=== PATIENT | male | born 1950 | race Caucasian/White ===

== ENCOUNTER → 2018-09-13 06:37 | Day surgery (SDC) | payer MEDICARE, BC ==
--- NOTE | 2018-09-05 17:36 | HP ---
PREOPERATIVE HISTORY AND PHYSICAL: DATE OF ADMISSION/SURGERY: 09/13/18 DATE OF OFFICE VISIT: 09/05/18 ATTENDING SURGEON: Dr. Bk Bustos.* (DICTATED BY GLENNA MACEDO) PROCEDURE: Left shoulder arthroscopic rotator cuff repair, decompression, debridement, and possible subpectoral biceps tenodesis. CHIEF COMPLAINT: Left shoulder pain. 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 He has failed conservative measures and therefore agreed to undergo a left shoulder arthroscopic rotator cuff repair, decompression, debridement, and possible biceps tenodesis with Dr. Bustos on 09/13/18. PAST MEDICAL HISTORY: Hypertension, kidney stones, and widened aorta. PAST SURGICAL HISTORY: Pilonidal cyst, vasectomy, cystoscopy, tonsillectomy and adenoidectomy, and wisdom teeth removal. The patient denies prior complications with anesthesia. MEDICATIONS: 1. Viagra 100 mg use as needed. 2. Wellbutrin 300 mg 1 by mouth every day. 3. Lisinopril/hydrochlorothiazide 03/10.5 one every day. 4. Fish oil 500 mg 1 by mouth every day. 5. Multivitamin 1 by mouth every. 6. Metoprolol succinate 25 mg 1 by mouth every day. 7. Ibuprofen 600 mg 1 by mouth twice a day. ALLERGIES: No known drug allergies. FAMILY HISTORY: Positive for stroke in his mother and AFib in his mother and cancer in his mother and father. SOCIAL HISTORY: He is retired. He denies tobacco use. He reports occasional alcohol consumption. He is right-hand dominant. REVIEW OF SYSTEMS: A 14-point review of systems was reviewed with the patient. Positive for current complaint, otherwise negative. Denies history of DVT or PE , history of bleeding disorder, fever, chills, chest pain, shortness of breath. PHYSICAL EXAMINATION GENERAL: A 68-year-old, well-developed, well-nourished male, in no acute distress. VITAL SIGNS: Height 70.5, weight 255, blood pressure 130/74, respiratory rate 18, temperature 97.5, BMI 36.1. HEENT: Normocephalic, atraumatic. PERRLA. Throat clear. NECK: Supple. PULMONARY: Lungs are clear to auscultation bilaterally. No wheezing, rhonchi, or rales. CARDIO: Regular rate and rhythm. S1, S2. No murmurs, gallops, or rubs. No edema. ABDOMEN: Positive bowel sounds. Soft, nontender. NEURO: Alert and oriented x3. Cranial nerves grossly intact. MUSCULOSKELETAL: Left upper extremity: Skin is intact. No warmth or erythema. Tenderness to palpation of the subacromial space and bicipital groove. Forward flexion and abduction to 100, passively able to move past. Positive drop-arm test. +4/5 strength to rotator cuff testing with pain. Positive impingement, Speed, Woodruff-Dixon, [place]. Positive Ady. +2 radial pulse. Sensation intact to light touch distally. DIAGNOSTIC STUDIES: MRI revealed full-thickness tear of the rotator cuff, subscapularis appears intact, and damage to the biceps. IMPRESSION: Left shoulder rotator cuff tear and biceps tendinitis. PLAN: The patient is scheduled to undergo a left shoulder arthroscopic rotator cuff repair, decompression, debridement, and possible biceps tenodesis with Dr. Bustos on 09/13/18. The patient states he has been seen by Dr. Patel, his puddler helper, and has been cleared. Percocet will be used for postop pain management with ibuprofen postoperatively. He will follow up 10 to 14 days postop for followup and suture removal. GLENNA MACEDO [id number]/[facility] #: [id number] MAGED
[~2018-09-13 06:37] MED LIST: Atracurium* 10 MG/ML 10 ML VIAL ONE; Buffered Lidocaine 1% SYRIN* 1 ML/SYRINGE INTRADERM ONE; Bupivacaine 0.25% SDV PF* 10 ML VIAL INJ ONE; Dexamethasone IV* 4 MG/ML 1 ML (4 MG) IV SLOW PU ONE; Dexamethasone IV* 4 MG/ML 1 ML (4 MG) ONE; DiMENhydriNATE IV* 50 MG/ML VIAL IV PUSH PRN; EPHEDrine (Pressors)* 50 MG/ML VIAL ONE; Famotidine IV* 10 MG/ML 2 ML (20 mg) IV ONE; Famotidine IV* 10 MG/ML 2 ML (20 mg) ONE; HYDROmorphone INJ1* 1 MG/ML SYRINGE IV PRN; Lactated Ringers 1000 ML Bag* 1,000 ML IV SCH; Lidocaine 2% PF * 5 ML VIAL ONE; Midazolam* 1 MG/ML 5 ML VIAL (5 MG) ONE; Naloxone* 0.4 MG/ML 1 ML VIAL IV PRN; Ondansetron INJ* 2 MG/ML VIAL IV PRN; Ondansetron INJ* 2 MG/ML VIAL ONE; Propofol* 10 MG/ML 20 ML BTL ONE; ROPIVACAINE 5 MG/ML 30 ML BTL (0.5%) ONE; Scopolamine 1.5 mg* PATCH TRANSDERM PRN; ceFAZolin 2 GM in NS PREMIX(*) 2 GM/100 ML BAG IVPB ONE; fentaNYL* 50 MCG/ML 2 ML VIAL (100 MCG VIAL) IV PRN; fentaNYL* 50 MCG/ML 2 ML VIAL (100 MCG VIAL) ONE; oxyCODONE/Acetamin 5/325 MG* TAB PO PRN
[2018-09-13 13:05] VITALS: BP 102/70
--- NOTE | 2018-09-14 06:16 | OP ---
CC: PCP, Kelly Qureshi MD * DATE OF OPERATION: 09/13/18 - [facility] DATE OF : 52 SURGEON: Bk Bustos MD. DIGITAL MUSIC INSTRUCTOR: GLENNA Dangelo. An clinical assistant professor was needed for the entirety of the case to help with positioning, retraction, and was utilized throughout all portions of the case. ANESTHESIOLOGIST: Dr. Hylton. ANESTHESIA: General with interscalene block. PRE-OP DIAGNOSIS: Left shoulder complete tear of the rotator cuff with bicipital tendonitis. POST-OP DIAGNOSIS: Left shoulder complete tear of the rotator cuff with bicipital tendonitis. OPERATIVE PROCEDURES: Left shoulder arthroscopy with: 1. Extensive glenohumeral debridement. 2. Subacromial decompression with acromioplasty. 3. Rotator cuff repair of the supraspinatus tendon in a double row fashion, augmented with REGENETEN patch. 4. Biceps tenodesis, subpectoral. IMPLANTS: Two HEALICOILs, 2 MULTIFIX, 1 Q-FIX 2.8 mm, 1 medium size REGENETEN patch. COMPLICATIONS: None. ESTIMATED BLOOD LOSS: Minimal. 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 He had significant pain and loss of motion. He underwent MRI that diagnosed him with a full-thickness complete tear of the rotator cuff. He failed conservative management and he elected to proceed with surgical treatment. The risks and benefits were discussed at length including, but not limited to bleeding, infection, damage to nerves; vessels; surrounding structures, wound nonhealing, persistent pain, need for further surgery, scarring, stiffness, incomplete relief of symptoms, risks of anesthesia. He has elected to proceed. He underwent medical risk optimization prior to surgery. DESCRIPTION OF PROCEDURE: The patient was greeted in the preoperative area by the attending surgeon. The correct extremity was marked and consent was confirmed. The patient underwent interscalene nerve block by the anesthesiologist, after which he was brought back to the operating suite and he was placed in the supine position on the operating table. He then underwent general anesthesia and endotracheal intubation, after which he was appropriately positioned in the right lateral decubitus position. An axillary roll was placed and he was secured with pegboard. The left arm was draped unsterile with 10 pounds traction. The left shoulder was then prepped and draped in the usual sterile fashion beginning with chlorhexidine soap, scrub, and alcohol wipe, and a final prep with ChloraPrep. After appropriate surgical pause indicating the side, site, procedure, and administration of antibiotics, a standard posterolateral portal was made sharply with 11 blade. The scope was introduced into the joint. The joint was examined. There were grade 0 to 1 changes of the glenohumeral joint. The anterior, posterior and superior labrum had unstable fraying. The biceps anchor was damaged. There was synovitis on the biceps tendon as well. There was evidence of full-thickness tear of the supraspinatus tendon. The subscap appeared to be intact. The inferior recess was intact with some synovitis. An anterior portal was made in an outside- in fashion. Shaver was used to debride back the anterior, posterior and superior labrum. The biceps was then tenotomized for later tenodesis and the stump was debrided back. Once the debridement was completed, attention was directed to the subacromial space. The scope was positioned in the subacromial space. The lateral portal was made in an outside-in fashion. Shaver was used to debride back the abundant bursa that was present and visualize the cuff tear. There was a full-thickness tear of the cuff. There appeared to be an irregularly shaped tear with some interstitial tearing. Once the abundant bursa was removed and hemostasis was obtained, using the electrocautery device, the undersurface of the acromion was then skeletonized using electrocautery device. A moderate anterolateral spur was identified and this was debrided back using the shaver and 4-0 oval daryl, and all excess bone and debris was removed. Once this was complete, attention was directed to the rotator cuff. The cuff tendon was then debrided back to a stable layer. The greater tuberosity was exposed and prepared using electrocautery device, the rasp as well as the 4-0 oval daryl to gently decorticate. After this was done through two separate stab incisions, two 4.75 HEALICOILs were placed with excellent purchase. The bone quality was quite good. Sutures were then passed through the tendon in a horizontal mattress configuration and then tied down using the arthroscopic knot- tying technique. This helped to reapproximate the cuff. The decision was made to proceed with a double-row fixation and 2 MULTIFIX anchors were used. One set of each of the 4 strands of the suture was then passed to the MULTIFIX to be placed anterolaterally and then posterolaterally. This helped to compress the cuff. The shoulder was taken through a gentle range of motion. There was appropriate compression of the rotator cuff. The decision was made to augment this using REGENETEN patch. A medium-sized REGENETEN patch was then brought to the field and then placed under arthroscopic visualization, secured medially with tendon rachel and laterally with bone rachel. This helped to augment the defect. Once this was done, final images were obtained. The wounds were copiously irrigated with sterile saline. Attention was directed to the biceps. The bed was airplaned to the left side. The anterior aspect of the shoulder was prepped again using ChloraPrep. An anterior incision was made using a 15 blade. Soft tissues were carefully dissected to expose the fascia. Once the fascia was identified, remainder of the dissection was done bluntly. The pec was elevated and the bicipital groove was palpated. The biceps was brought through the wound and had abundant synovitis and tendonitis. The groove was prepared in the usual fashion using electrocautery device, red ball rasp, and an osteotome to allow for bony bleeding bed. The Q-FIX drill guide was then drilled unicortically and the Q- FIX was deployed with excellent purchase. The sutures were then passed through the biceps in a Aneudy-Jr type configuration and then tied down. The excess stump was excised. The wounds were copiously irrigated with sterile saline. The anterior wound was closed in layers with 3- 0 Monocryl for subcutaneous as well as a running layer. The portals were closed using 3-0 nylon. Sterile dressings were applied. The wounds were copiously irrigated with sterile saline. Cryo/Cuff and UltraSling were applied. He was awoken from anesthesia and transferred to PACU in stable condition. POSTOPERATIVE PLAN: He will be nonweightbearing. He will be in a sling for 6 weeks. He will be discharged on pain medication and antibiotics. I will see the patient back in 10 to 14 days. [id number]/[facility] #: [id number] MAGED
== END | disposition home or self-care (01) ==
LOC: OR 06:37
PROVIDERS: ATTEND Orthopaedic Surgery
DX: M75.122 Complete rotator cuff tear or rupture of left shoulder, not specified as traumatic (principal); M75.22 Bicipital tendinitis, left shoulder; I10 Essential (primary) hypertension; Z87.442 Personal history of urinary calculi
CPT/HCPCS: C1713; C1776; J0690; J1100; J2250; J2405; J2704; J2795; J3010; J3490

== ENCOUNTER 2019-05-31 10:58 | Inpatient (IN) | payer BC, MEDICARE ==
--- OUTSIDE RECORDS SUMMARY | 2019-05-31 11:15 | XMS REPORT | Continuity of Care Document ---
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 [phone] Medicine Problems Active Problems Provider Date Electrocardiogram abnormal Patrick Patel M.D., [facility], Onset: 07/12/2018 [facility] Dyspnea Patrick Patel M.D., [facility], Onset: 07/12/2018 [facility] Strain of rotator cuff capsule Bk Bustos MD Onset: 07/20/2018 Essential hypertension [facility], Onset: 09/04/2018 FASNC Strain of muscle of long head of Bk Bustos MD Onset: 09/22/2018 biceps brachii Knee joint effusion Bk Bustos MD Onset: 05/15/2019 Localized, primary osteoarthritis Bk Bustos MD Onset: 05/15/2019 Social History Type Date Description Comments Sex Unknown Tobacco Use Start: Unknown Never Smoked Cigarettes Smoking Status Reviewed: 05/15/19 Never Smoked Cigarettes ETOH Use Currently consumes 5-6 times per week alcohol Tobacco Use Start: Unknown Patient has never smoked Recreational Drug Use Denies Drug Use Exercise Type/Frequency Does not exercise Allergies, Adverse Reactions, Alerts Description No Known Drug Allergies Medications Active Medications SIG Qnty Indications Ordering Provider Date Metoprolol Succinate 1 by mouth every 90tabs Patrick Patel, 08/02/2018 SHANELLE vargas M.D., [facility], AUGUSTINNC 25mg Tablets ER 24HR Viagra use as needed Unknown 100mg Tablets daily Wellbutrin XL 1 by mouth every Unknown 300mg day Tablets ER 24HR Lisinopril-Hydrochloro 1 by mouth every Unknown thiazide day 10-12.5mg Tablets Fish Oil 1 by mouth every Unknown 500mg Capsules day Multivitamin Adult 1 by mouth every Unknown day Tablets Ibuprofen once or twice a Unknown 600mg Tablets day Medications Administered in Office Medication SIG Qnty Indications Ordering Provider Date No Injection Bk Bustos MD 05/15/2019 Injection Triamcinolone (Kenalog) Bk Bustos MD 05/15/2019 Injection Inj, Regadenoson, 0.1 MG Patrick Patel M.D., 09/01/2018 Injection FACC, FASNC Technetium TC 99M Patrick Patel M.D., 09/01/2018 Tetrofosmin, Per Unit Dose Up FACC, FASNC To 40 Millicuries Injection Immunizations Description No Information Available Vital Signs Date Vital Result Comment 05/15/2019 2:03pm Height 70 inches 5'10" Weight 254.25 lb Heart Rate 76 /min BP Systolic 126 mmHg BP Diastolic 76 mmHg Respiratory Rate 14 /min Pain Level 8 BMI (Body Mass Index) 36.5 kg/m2 03/16/2019 9:27am Height 70 inches 5'10" Weight 250.00 lb Heart Rate 80 /min BP Systolic 118 mmHg BP Diastolic 88 mmHg Body Temperature 97.2 F Pain Level 5 BMI (Body Mass Index) 35.9 kg/m2 Results Description No Information Available Procedures Description No Information Available Medical Devices Description No Information Available Encounters Type Date Location Provider Dx Diagnosis Office Visit 03/16/2019 [facility] Bk Bustos MD S46.012D Strain of 9:30a at [place] musc/tend the rotator cuff of left shoulder, subs Office Visit 01/16/2019 [facility] B[facility] S46.012D Strain of 9:30a at [place] musc/tend the rotator cuff of left shoulder, subs S46.112D Strain of musc/fasc/tend long head of biceps, left arm, subs Assessments Date Code Description Provider 05/15/2019 M17.12 Unilateral primary osteoarthritis, left knee Bk Bustos MD 05/15/2019 M25.462 Effusion, left knee Bk Bustos MD 03/16/2019 S46.012D Strain of muscle(s) and tendon(s) of the rotator Bk Bustos MD cuff of lef 01/16/2019 S46.012D Strain of muscle(s) and tendon(s) of the rotator Bk Bustos MD cuff of lef 01/16/2019 S46.112D Strain of muscle, fascia and tendon of long head Bk Bustos MD of biceps, 12/05/2018 S46.012D Strain of muscle(s) and tendon(s) of the rotator Bk Bustos MD cuff of lef 12/05/2018 S46.112D Strain of muscle, fascia and tendon of long head Bk Bustos MD of biceps, Plan of Treatment 05/15/2019 - Bk Bustos, MDM17.12 Unilateral primary osteoarthritis, left kneeFollow up:Follow up: As [id number] Effusion, left knee Functional Status Description No Information Available Mental Status Description No Information Available Referrals Description No Information Available
[2019-05-31] MEDS ORDERED: NS 0.9% 1000 ML** 1,000 ML IV ONE ×2 (11:30→15:52)
--- NOTE | 2019-05-31 11:38 | ED ---
Abdominal Pain/Male - HPI Summary HPI Summary: Pt is a 68 y/o M presenting to the ED with a chief complaint of abd pain initially onset 05/22/19. He states it is intermittent, located in the RUQ, seemingly on the R lower rib area. He states it is not present during the day but seems to come on and worsen after he lies down to go to sleep. Denies nausea , vomiting, fever, or radiation of the pain. Not worsened by eating, not alleviated by anything. Worsened by deep breaths. Notes hx of cough for a couple of months, and this morning he had a coughing fit that produced some sputum with blood in it, and he notes coughing up a hard pea in the waiting room today. - History of Current Complaint Chief Complaint: EDAbdPain Stated Complaint: ABD PAIN Time Seen by Provider: 05/31/19 11:26 Hx Obtained From: Patient Onset/Duration: Gradual Onset, Lasting Hours, Still Present Timing: Intermittent, Lasting Hours Severity Initially: Moderate Severity Currently: Mild Pain Intensity: 1 Pain Scale Used: 0-10 Numeric Location: Discrete At: RUQ Radiates: No Aggravating Factor(s): Deep Breaths Alleviating Factor(s): Nothing Associated Signs And Symptoms: Positive: Cough. Negative: Fever, Nausea, Vomiting - Allergies/Home Medications Allergies/Adverse Reactions: Allergies Allergy/AdvReac Type Severity Reaction Status Date / Time No Known Allergies Allergy Verified 05/31/19 11:05 Home Medications: Home Medications Diclofenac Sodium EC TAB* [Voltaren EC TAB*] 25 mg PO TID PRN 05/31/19 [History Confirmed 05/31/19] PMH/Surg Hx/FS Hx/Imm Hx Previously Healthy: Yes Endocrine/Hematology History: Denies: Hx Diabetes Cardiovascular History: Reports: Hx Hypertension - htn, Other Cardiovascular Problems/Disorders - enlarged ascending aorta Denies: Hx Pacemaker/ICD History: Reports: Hx Kidney Stones - 1994 Denies: Hx Renal Disease Sensory History: Reports: Hx Contacts or Glasses - glasses Denies: Hx Hearing Aid Opthamlomology History: Reports: Hx Contacts or Glasses - glasses Psychiatric History: Denies: Hx Panic Disorder - Surgical History Surgery Procedure, Year, and Place: TONSILS. ADENOIDS. PILONIDIAL CYST. cystoscopy Hx Anesthesia Reactions: No Infectious Disease History: No Infectious Disease History: Denies: Traveled Outside the [place] in Last 30 Days - Social History Alcohol Use: Weekly Alcohol Amount: 3-4 per week Hx Substance Use: No Substance Use Type: Reports: None Hx Tobacco Use: No Smoking Status (MU): Never Smoked Tobacco Review of Systems Negative: Fever Positive: Cough Positive: Abdominal Pain. Negative: Vomiting, Nausea All Other Systems Reviewed And Are Negative: Yes Physical Exam - Summary Physical Exam Summary: Constitutional: Well-developed, Well-nourished, Alert. (-) Distressed Skin: Warm, Dry HENT: Normocephalic; Atraumatic Eyes: Conjunctiva normal Neck: Musculoskeletal ROM normal neck. (-) JVD, (-) Stridor, (-) Tracheal deviation Cardio: Rhythm regular, rate normal, Heart sounds normal; Intact distal pulses; The pedal pulses are 2+ and symmetric. Radial pulses are 2+ and symmetric. (-) Murmur Pulmonary/Chest wall: Effort normal. (-) Respiratory distress, (-) Wheezes, (-) Rales Abd: Soft, mild RUQ tenderness, (-) Distension, (-) Guarding, (-) Rebound Musculoskeletal: (-) Edema Lymph: (-) Cervical adenopathy Neuro: Alert, Oriented x3 Psych: Mood and affect Normal Triage Information Reviewed: Yes Vital Signs On Initial Exam: Initial Vitals Temp Pulse Resp BP Pulse Ox 98.3 F 99 16 109/73 96 05/31/19 11:03 05/31/19 11:03 05/31/19 11:03 05/31/19 11:03 05/31/19 11:03 Vital Signs Reviewed: Yes Procedures - Sedation Patient Received Moderate/Deep Sedation with Procedure: No Diagnostics - Vital Signs Vital Signs Temp Pulse Resp BP Pulse Ox 05/31/19 11:25 114/76 05/31/19 11:03 98.3 F 99 16 109/73 96 - Laboratory Result Diagrams: 05/31/19 11:51 05/31/19 11:51 Lab Statement: Any lab studies that have been ordered have been reviewed, and results considered in the medical decision making process. - Radiology CXR Radiology Interpretation Completed By: Radiologist Summary of Radiographic Findings: CXR IMPRESSION: LOW LUNG VOLUMES, NO EVIDENCE FOR ACUTE FINDING. THIS REPORT WAS REVIEWED BY ED PHYSICIAN. - CT CTA CHEST/THORAX CT Interpretation Completed By: Radiologist Summary of CT Findings: IMPRESSION: 1. Right posterior costophrenic angle consolidation and right perihilar lymphadenopathy. concerning for pneumonia. Follow-up to radiologic resolution. 2. No pulmonary embolism identified. 3. Coronary artery disease. THIS REPORT WAS REVIEWED BY ED PHYSICIAN. - Ultrasound ABDOMEN US Ultrasound Interpretation Completed By: Radiologist Summary of Ultrasound Findings: US ABDOMEN IMPRESSION: 1. NORMAL EXAMINATION OF THE GALLBLADDER. 2. MILD HEPATOMEGALY WITH INCREASED ECHOGENICITY CONSISTENT WITH DIFFUSE HEPATOCELLULAR. DISEASE MOST LIKELY FATTY INFILTRATION ALTHOUGH NONSPECIFIC. THIS REPORT WAS REVIEWED BY ED PHYSICIAN. - EKG 1146 Cardiac Rate: Tachycardia - 102bpm EKG Rhythm: Sinus Tachycardia ST Segment: Normal Ectopy: None Summary of EKG Findings: EKG at 1146 shows sinus tachycardia at 102bpm with RBBB and no STEMI. Dr. Mckay has reviewed and interpreted this EKG. Re-Evaluation - Re-Evaluation First Eval Re-Evaluation Time: 14:29 Comment: Elevated D-dimer, discussed CTA with patient, he is agreeable with this imaging study. Second Eval Re-Evaluation Time: 15:52 Comment: Results of CTA discussed with the patient, patient to be admitted. He is agreeable with admission at this time. Abdominal Pain Male Course/Dx - Course Course Of Treatment: Pt is a 68 y/o M presenting to the ED with a chief complaint of abd pain initially onset 05/22/19. He states it is intermittent, located in the RUQ, seemingly on the R lower rib area. He states it is not present during the day but seems to come on and worsen after he lies down to go to sleep. Denies nausea, vomiting, fever, or radiation of the pain. Notes this morning he had a coughing fit that produced some sputum with blood in it, and he notes coughing up a hard pea in the waiting room today. Pt's exam is nml aside from some mild RUQ tenderness. EKG at 1146 shows sinus tachycardia at 102bpm with RBBB and no STEMI. Dr. Mckay has reviewed and interpreted this EKG. CXR IMPRESSION: LOW LUNG VOLUMES, NO EVIDENCE FOR ACUTE FINDING. Bloodwork was obtained. Trop was 0.03. BNP was 52. WBC was 17, absolute neuts 13.6, absolute monos 1.3, glucose 127. During ED course, patient received fluids. US ABDOMEN IMPRESSION: 1. NORMAL EXAMINATION OF THE GALLBLADDER. 2. MILD HEPATOMEGALY WITH INCREASED ECHOGENICITY CONSISTENT WITH DIFFUSE HEPATOCELLULAR. DISEASE MOST LIKELY FATTY INFILTRATION ALTHOUGH NONSPECIFIC. Second trop was 0.05. CTA CHEST/THORAX IMPRESSION: 1. Right posterior costophrenic angle consolidation and right perihilar lymphadenopathy. concerning for pneumonia. Follow-up to radiologic resolution. 2. No pulmonary embolism identified. 3. Coronary artery disease. 1545 - Patient's case was discussed with Dr. Valdez, Dr. Valdez accepts for admission. He was started on additional fluids, ceftriaxone sodium 1 gm in 50 mls @ 100 mls/hr IVPB, and Zithromax 500 mg in 250 mls @ 250 mls/hr IVPB. - Diagnoses Provider Diagnoses: PNA (pneumonia), Elevated troponin - Provider Notifications Discussed Care Of Patient With: Jessica Valdez Time Discussed With Above Provider: 15:46 Instructed by Provider To: Other - 1545 - Patient's case was discussed with Dr. Valdez, Dr. Valdez accepts for admission Discharge ED - Sign-Out/Discharge Documenting (check all that apply): Patient Departure - admit - Discharge Plan Condition: Stable Disposition: ADMITTED TO [facility] Referrals: Kelly Qureshi MD [Primary Care Provider] - - Attestation Statements Document Initiated by Scribe: Yes Documenting Scribe: Aruna Negrete and Bob Cheney Provider For Whom Saulo is Documenting (Include Credential): Grayson Mckay DO. Scribe Attestation: Aruna Bowen and Bob Cheney, scribed for Grayson Mckay DO. on 05/31/19 at 1821. Status of Scribe Document: Ready
[2019-05-31 12:10] LABS: ABS Basophils 0.1 10^3/ul (0-0.2); ABS Eosinophils 0.1 10^3/ul (0-0.6); ABS Monocytes 1.3 10^3/ul (0-0.8); ABS Neutrophils 13.6 10^3/ul (1.5-7.7); Eosinophil % 0.5 %; Hematocrit 44 % (42-52); Hemoglobin 14.9 g/dL (14.0-18.0); Lymphocyte % 11.9 %; Mean Corpuscular HGB Conc 34 g/dL (31-36); Mean Corpuscular Hemoglobin 30 pg (27-31); Mean Corpuscular Volume 90 fL (80-94); Mean Platelet Volume 8.2 fL (7.4-10.4); Platelet Count 197 10^3/uL (150-450); Red Blood Count 4.94 10^6 /uL (4.18-5.48); Red Cell Distribution Width 13 % (10-15)
[2019-05-31 12:24] LABS: Albumin 3.9 g/dL (3.2-5.2); Albumin/Globulin Ratio 1.1 (1-3); BUN/Creatinine Ratio 16.5 (8-20); Calcium 9.5 mg/dL (8.6-10.3); EGFR African American 100.6 (>60); EGFR Non-African American 83.1 (>60); Globulin 3.4 g/dL (2-4); Potassium 4.2 mmol/L (3.5-5.0); Total Protein 7.3 g/dL (6.4-8.9)
[2019-05-31 12:29] LABS: Troponin I 0.03 ng/mL (<0.03)
[2019-05-31] MEDS ORDERED: Iohexol 350* (CONTRAST) 500 ML MDV IV ONE (14:43)
[2019-05-31 15:42] LABS: Troponin I 0.05 ng/mL (<0.03)
[2019-05-31] MEDS ORDERED: cefTRIAXone(*) 1 GM in NS 0.9% 50 ML* 50 ML IVPB ONE (15:52)
[2019-05-31] MEDS ORDERED: Azithromycin 500 mg/250 ml NS 500 MG/250 ML BAG IVPB ONE (15:52)
[2019-05-31] MEDS ORDERED: Ibuprofen TAB* 800 MG PO PRN (17:41)
[2019-05-31] MEDS ORDERED: Aspirin TAB* 325 MG PO ONE (17:42)
[2019-05-31] MEDS ORDERED: NS 0.9% 1000 ML** 1,000 ML IV SCH (18:00)
[2019-05-31] MEDS ORDERED: Aspirin 81 mg CHEW TAB* 81 MG TAB.CHEW PO ONE (18:00)
--- NOTE | 2019-05-31 20:18 | HP ---
CC: Dr. Kelly Qureshi; Dr. Patrick Patel * HISTORY AND PHYSICAL: DATE OF ADMISSION: 05/31/19 PRIMARY CARE PROVIDER: Dr. Kelly Qureshi. WORD PROCESSOR TECHNICIAN: Dr. Patrick Patel. CHIEF COMPLAINT: Right rib pain. HISTORY OF PRESENT ILLNESS: This is a 68-year-old male with past medical history hypertension, who now presents to the emergency room because of right rib pain. The pain has been ongoing for the past 6 to 7 days, pain is on and off , is most noticeable at night when it is severe 9/10, in the morning it is described as getting better 1 to 2/10, it is worse when taking deep breaths in. This is associated with dry cough as well. The patient reports that prior to this incident, he was having on and off cough, initially it was dry and then he had a cold and congestion in which he started to have olive green mucus, since then the cough has become dry and is now associated with pain. There is no fever, no chills. No recent sick contacts, the patient reports that he took his flu vaccine this year as well. In the emergency room, the patient was seen and evaluated, the patient had a CT scan of the chest, blood work done, ultrasound of the abdomen, was given Rocephin 1 g as well as normal saline and azithromycin 500 mg IV. Subsequently , the hospitalist service was called. Of note, patient reports that he had a stress test as well as an echocardiogram done in 2019 with his bindery operator, Dr. Patel. PAST MEDICAL HISTORY: 1. Frontal scalp basal cell cancer removal. 2. Hypertension. 3. Kidney stone in 1984. PAST SURGICAL HISTORY: Rotator cuff repair surgery. MEDICATIONS: Home medications include: 1. Diclofenac 25 mg 3 times a day as needed. 2. Ibuprofen 800 mg every 6 hours as needed. 3. Multivitamin 1 cap daily. 4. Metoprolol succinate 25 mg in the morning. 5. Bupropion XL 300 mg in the morning. 6. Lisinopril/hydrochlorothiazide 03/10.5 one tab in the morning. ALLERGIES: No known drug allergies. FAMILY HISTORY: Mother: Breast cancer, Kaposi's sarcoma, atrial fibrillation. Father: Pancreatic cancer and arthritis. 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 REVIEW OF SYSTEMS: The patient does not have any fevers, no chills, no changes in his appetite. Cardiovascular: No chest pain, though he does have a right rib pain, no lower extremity edema. Respiratory: See HPI. GI: No abdominal pain , no heartburn, no nausea, no vomiting. : No hematuria, no dysuria. Neurologic: No focal weakness or sensory loss, no headache. Eyes: No dry eyes , no diplopia. ENT: No trouble swallowing. No sore throat. Musculoskeletal: He does have left-sided knee pain, patient reports that he was diagnosed with congenital bifold patella and that causes him to have discomfort at the left knee from time to time. Skin: No rashes or lesions. PHYSICAL EXAMINATION GENERAL: This is a well-developed, well-nourished, obese male, lying in bed in no acute distress. VITAL SIGNS: Blood pressure is 116/80, heart rate of 87, respiratory rate of 16 , oxygenation of 92% on room air, temperature of 98.3 Fahrenheit. HEENT: Pupils are equal, round, reactive to light, atraumatic, normocephalic. NECK: Range of motion of the neck is intact. LUNGS: There is no tachypnea, no use of accessory muscles, mild tenderness at the right lower rib region, decreased air entry at the right lower lobe, no wheezing, rales or rhonchi. HEART: There is no chest wall tenderness, regular rate and rhythm. No murmurs , rubs or gallops. Dorsalis pedis 2 + bilaterally. ABDOMEN: Normoactive bowel sounds, abdomen is soft, nontender, nondistended. MUSCULOSKELETAL: There is no cyanosis, clubbing or edema. SKIN: There are no rashes or lesions. NEUROLOGIC: Speech is clear and coherent, he is awake, alert and oriented x3, there is no facial asymmetry, tongue is midline, motor is 5/5 in all 4 extremities. LABS AND IMAGING: Sodium 137, potassium 4.2, chloride 101, bicarb 27, BUN 15, creatinine of 0.91, glucose of 127, total bilirubin of 1.00, AST of 17, ALT of 26, alkaline phosphatase of 59, troponin of 0.03 as well as a repeat was done which was 0.05. Total protein of 7.3, lipase is 41, albumin of 3.4, D-dimer of 623, WBC of 17.0 with percent neutrophil of 13.6, hemoglobin of 14.9, platelets of 197. The patient had an abdominal ultrasound done which showed normal examination of the gallbladder with mild hepatomegaly with increased echogenicity consistent with diffuse hepatocellular disease, most likely fatty infiltration, although is nonspecific. A chest x-ray was done, which revealed low lung volumes, no evidence for acute finding. EKG revealed sinus tachycardia with findings suggestive of atrial enlargement with a right bundle branch block. Right bundle branch was also seen in prior EKGs. The patient also had a chest/thorax CTA, which showed no evidence of pulmonary embolism, however, showed a right posterior costophrenic angle consolidation and right perihilar lymphadenopathy concerning for pneumonia, follow up radiologic resolution. No pulmonary embolism identified, coronary artery disease. IMPRESSION AND PLAN: 1. Right lower lobe pneumonia: This is a community-acquired pneumonia, start the patient on Rocephin, azithromycin, sputum culture ordered, urine legionella antigen and strep antigen have been ordered. 2. Elevated troponin: Troponin of 0.03, 0.05. The patient does not have any left- sided chest pain. We will give patient aspirin 162 mg x1 dose, get a repeat troponin today as well as tomorrow morning. The patient reports that he had a stress test as well as an echocardiogram that was supposedly normal at Dr. Patrick Patel's office. We will try to obtain those results. 3. History of hypertension: At this point, patient did receive a CT scan with contrast, so he is getting IV fluids, so I will hold his hydrochlorothiazide, continue the lisinopril. 4. Rib pain: In the setting of right lower lobe pneumonia, continue p.r.n. ibuprofen, alternate with acetaminophen. 5. Elevated D-dimer: Could be nonspecific, the PE was ruled out. 6. Regular diet. 7. Vital signs every 4 hours. 8. Additional hospital course as the course progresses. [id number]/[facility] #: [id number] MAGED
[2019-06-01] MEDS ORDERED: Lisinopril TAB* 10 MG PO SCH (09:00)
[2019-06-01] MEDS ORDERED: Vitamin THERAPEUTIC TAB PO SCH (09:00)
[2019-06-01] MEDS ORDERED: Azithromycin TAB* 250 MG PO SCH (09:00)
[2019-06-01] MEDS ORDERED: Metoprolol Succinate XL TAB* 25 MG PO SCH (09:00)
[2019-06-01] MEDS ORDERED: BuPROPion XL* 300 MG TAB.XL PO SCH (09:00)
[2019-06-01 09:08] LABS: ABS Basophils 0.1 10^3/ul (0-0.2); ABS Eosinophils 0.2 10^3/ul (0-0.6); ABS Lymphocytes 2.7 10^3/ul (1.0-4.8); ABS Monocytes 0.7 10^3/ul (0-0.8); ABS Neutrophils 9.1 10^3/ul (1.5-7.7); Eosinophil % 1.4 %; Hematocrit 40 % (42-52); Hemoglobin 13.8 g/dL (14.0-18.0); Lymphocyte % 21.2 %; Mean Corpuscular HGB Conc 34 g/dL (31-36); Mean Corpuscular Hemoglobin 30 pg (27-31); Mean Corpuscular Volume 88 fL (80-94); Mean Platelet Volume 8.3 fL (7.4-10.4); Platelet Count 184 10^3/uL (150-450); Red Blood Count 4.54 10^6 /uL (4.18-5.48); Red Cell Distribution Width 13 % (10-15); White Blood Count 12.8 10^3/uL (3.5-10.8)
[2019-06-01 09:20] LABS: Calcium 8.8 mg/dL (8.6-10.3); EGFR Non-African American 95.1 (>60); Potassium 3.6 mmol/L (3.5-5.0)
[2019-06-01 11:25] VITALS: BP 118/72
[2019-06-01] MEDS ORDERED: cefTRIAXone(*) 1 GM in NS 0.9% 50 ML* 50 ML IVPB SCH (16:00)
--- NOTE | 2019-06-01 21:06 | DS ---
CC: Dr. Kelly Qureshi; Dr. Patrick Patel DISCHARGE SUMMARY: DATE OF ADMISSION: 05/31/19 DATE OF DISCHARGE: 06/01/19 PRIMARY CARE PROVIDER: Dr. Kelly Qureshi CONVERTING TECHNICIAN: Dr. Patrick Patel. REASON FOR THE ADMISSION: Right rib pain. HOSPITAL COURSE: This is a 68-year-old male with past medical history of hypertension, who had presented to the emergency room because of on and off right rib pain for the past 6 to 7 days. In the emergency room, the patient was found to have elevated troponin at 0.03 as well as 0.05 as well as CAT scan showing right lower lobe pneumonia. The patient was started on Rocephin, azithromycin. He was given IV fluids. Urine legionella antigen and strep urine antigen were negative. Sputum culture was ordered and blood culture was done. The patient was initially found to have leukocytosis of 70.0. This morning the patient's blood work showed a leukocytosis of 12.8 with decrease in the absolute neutrophile count from 13.6 to 9.1. Through the course, the patient has remained afebrile. This morning the patient reports that he feels significantly better, his pain has been improving. Regarding his elevated troponin, the patient reports that he never had any chest pain though he did have right rib pain. There was no shortness of breath , no palpitations. The patient reported to me that he had an echo done as well as a stress test done with his mdm developer in 2019. The records were obtained , the patient had a nuclear stress test which was negative in August of 2018. The patient also had an echocardiogram in July of 2018 which showed an ejection fraction of 60% to 65% with a grade 1 diastolic diastolic dysfunction. Through the course the patient has remained afebrile. He is not requiring oxygen. The patient was eager to go home and we discussed discharge planning with the patient. PHYSICAL EXAMINATION: Blood pressure is 118/72, heart rate of 89, respiratory rate of 20, temperature of 97.0 Fahrenheit, oxygenation of 96% on room air. General: This is an obese male, lying in bed, in no acute distress. There is no oropharyngeal erythema, no cervical lymphadenopathy. Lungs: There is no tachypnea, no use of accessory muscles. Lungs are clear without any wheezing, rales, or rhonchi. Heart: There is no chest wall tenderness, regular rhythm. No murmurs, rubs, or gallops. Abdomen: Normoactive bowel sounds. Abdomen is soft, nontender, nondistended. Extremities: There is no lower extremity edema , no calf tenderness. DISCHARGE PLANNING: DISCHARGE DIAGNOSES: Include: 1. Right lower lobe pneumonia, community-acquired pneumonia. 2. Elevated troponin, resolved. 3. History of hypertension. 4. Elevated D-dimer with negative PE study based on the CTA. DISCHARGE CONDITION: Stable. DISCHARGE DISPOSITION: Home. DISCHARGE MEDICATIONS: Include: 1. Azithromycin 250 mg daily for the next 3 days. 2. Cefuroxime 500 mg twice a day to take 8 total tablets. 3. Diclofenac sodium 25 mg 3 times a day as needed for moderate pain. 4. Lisinopril/HCTZ 03/10.5 one tab in the morning. 5. Multivitamin 1 tablet daily. 6. Metoprolol succinate 25 mg in the morning. 7. Ibuprofen 800 mg every 6 hours as needed for moderate pain. 8. Bupropion 300 mg XL daily. Discharge planning was discussed with the patient at bedside. DISCHARGE FOLLOWUP: Includes followup with the primary care provider, Dr. Kelly Qureshi in 1 to 2 weeks. Additional instructions include to finish antibiotics as ordered. Follow up with your PCP within a week. Return to the ER for fevers, chills, trouble breathing, worsening cough, or if any new issues occur. The blood cultures are still pending, they will be grown for total 5 days, the PCP should be able to access the results. [id number]/[facility] #: [id number] MAGED
== END 2019-06-01 11:45 | disposition home or self-care (01) | DRG 195 ==
LOC: ED 10:58 → MEDTELE 17:47
PROVIDERS: ADMIT Internal Medicine; ATTEND Internal Medicine
DX: J18.9 Pneumonia, unspecified organism (principal); I10 Essential (primary) hypertension; R79.89 Other specified abnormal findings of blood chemistry; I45.10 Unspecified right bundle-branch block; Z85.828 Personal history of other malignant neoplasm of skin; Z79.899 Other long term (current) drug therapy
CPT/HCPCS: 36415; 71046; 71275; 76705; 80048; 80053; 83690; 83880; 84484; 85025; 85379; 87040; 87899; 93005; 96361; 96374; 99284; A9270-GY; J0456; J0696; Q9967